=== PATIENT | male | born 1985 | race African-American/Black ===

== ENCOUNTER 2024-08-16 21:13 | Emergency (ER) | payer MEDICARE, MEDICAID ==
[~2024-08-16] VITALS: Ht 180.3 cm; Wt 87.0 kg
[2024-08-16 21:32] VITALS: O2SAT 100
[2024-08-16 21:44] VITALS: BP 143/84; PULSE 71; TEMP 98.4; O2SAT 98
[2024-08-16] MEDS: LIDOCAINE HCL/PF 1% 10 MG/ML 5ML VIAL INFIL ONE (23:47)
[2024-08-16] MEDS: BACITRACIN ZINC OINT UDPKT TOP ONE (23:48)
[2024-08-16] MEDS: TETANUS, DIPHTHERIA, PERTUSSIS VAC/PF 0.5ML (>10YR OLD) IM ONE (23:48)
[2024-08-16] MEDS ORDERED: AMOX1TAB16 MT (23:54)
[2024-08-17 00:07] VITALS: RESP 16
== END 2024-08-17 00:08 | disposition home or self-care (01) ==
LOC: ER 21:13
DX: S51.811A Laceration without foreign body of right forearm, initial encounter (principal); W54.0XXA Bitten by dog, initial encounter; Y93.89 Activity, other specified; Y92.89 Other specified places as the place of occurrence of the external cause; Y99.8 Other external cause status
CPT/HCPCS: 99283; 90715; 90471; J3490